=== PATIENT | male | born 1950 | race Caucasian/White ===

== ENCOUNTER 2017-06-27 10:24 | Observation (INO) | payer OTHER, MEDICAID ==
[~2017-06-27] VITALS: Ht 185.4 cm; Wt 126.1 kg
[2017-06-27] MEDS ORDERED: IOHEXOL 350 MG/ML 100ML IJ ONE ×2 (16:01→17:08)
[2017-06-27 16:36] LABS: Basophils # (auto) 0.1 uL; Basophils % (auto) 0.6 % (0.0-2.0); Eosinophils # (auto) 0.1 uL; Eosinophils % (auto) 1.5 % (0.0-7.0); Hematocrit 48.3 % (41.0-53.0); Hemoglobin 16.5 g/dL (13.5-17.5); Lymphocytes # (auto) 1.8 uL; Lymphocytes % (auto) 18.5 % (10.0-50.0); Mean Corpuscular Hemoglobin 32.1 pg (28.0-32.0); Mean Corpuscular Hgb Conc. 34.1 g/dL (32.0-36.0); Mean Corpuscular Volume 94.1 fL (80.0-100.0); Mean Platelet Volume 8.9 fL (6.9-10.8); Monocytes # (auto) 0.7 uL; Monocytes % (auto) 7.3 % (0.0-12.0); Neutrophils % (auto) 72.1 % (37.0-80.0); Nucleated Red Blood Cells % 0.1 %; Platelet Count (auto) 247 10^3/uL (140-450); Red Cell Distribution Width 13.9 % (11.8-14.3); White Blood Cell 9.7 10^3/uL (4.4-10.8)
[2017-06-27 16:44] LABS: INR 0.92 (0.9-1.15); Partial Thromboplastin Time 27.3 sec (22.64-33.71)
[2017-06-27 16:51] LABS: Albumin 4.1 g/dL (3.4-5.0); BUN/Creatinine Ratio 12.8; Calcium 9.2 mg/dL (8.5-10.1); Potassium 4.1 mmol/L (3.5-5.1)
[2017-06-27 16:54] LABS: Bilirubin, Total 0.7 mg/dL (0.2-1.0); Total Protein 8.3 g/dL (6.4-8.2)
[2017-06-27 20:11] VITALS: BP 150/78
== END 2017-06-27 20:19 | disposition home or self-care (01) | DRG 556 ==
LOC: ER 10:24 → OVERFLOW 15:55 → ER 20:19
PROVIDERS: ADMIT Family Medicine; ATTEND Family Medicine
DX: M79.89 Other specified soft tissue disorders (principal); E11.9 Type 2 diabetes mellitus without complications; E78.5 Hyperlipidemia, unspecified; I10 Essential (primary) hypertension; Z82.49 Family history of ischemic heart disease and other diseases of the circulatory system; R60.9 Edema, unspecified; I83.90 Asymptomatic varicose veins of unspecified lower extremity; N40.0 Benign prostatic hyperplasia without lower urinary tract symptoms; K57.30 Diverticulosis of large intestine without perforation or abscess without bleeding; M70.21 Olecranon bursitis, right elbow; Z86.718 Personal history of other venous thrombosis and embolism
CPT/HCPCS: 36415; 71010; 73080; 73706; 80053; 83735; 85025; 85610; 85730; 93971; 99285; G0378; Q9967

== ENCOUNTER 2017-08-02 15:13 | Emergency (ER) | payer OTHER, MEDICAID ==
[~2017-08-02] VITALS: Ht 185.4 cm; Wt 127.0 kg
[2017-08-02 16:20] LABS: Basophils # (auto) 0.2 uL; Basophils % (auto) 2.1 % (0.0-2.0); Eosinophils # (auto) 0.3 uL; Eosinophils % (auto) 3.1 % (0.0-7.0); Hematocrit 45.7 % (41.0-53.0); Hemoglobin 15.6 g/dL (13.5-17.5); Lymphocytes % (auto) 21.3 % (10.0-50.0); Mean Corpuscular Hgb Conc. 34.2 g/dL (32.0-36.0); Mean Corpuscular Volume 93.3 fL (80.0-100.0); Mean Platelet Volume 8.9 fL (6.9-10.8); Monocytes # (auto) 0.9 uL; Monocytes % (auto) 9.1 % (0.0-12.0); Neutrophils # (auto) 6.1 uL; Neutrophils % (auto) 64.4 % (37.0-80.0); Nucleated Red Blood Cells % 0.1 %; Platelet Count (auto) 247 10^3/uL (140-450); White Blood Cell 9.5 10^3/uL (4.4-10.8)
[2017-08-02 16:37] LABS: Albumin 3.6 g/dL (3.4-5.0); BUN/Creatinine Ratio 11.2; Bilirubin, Total 0.5 mg/dL (0.2-1.0); Potassium 4.4 mmol/L (3.5-5.1); Total Protein 7.9 g/dL (6.4-8.2)
[2017-08-02 17:21] VITALS: BP 131/87
== END 2017-08-02 17:44 | disposition home or self-care (01) ==
LOC: ER 15:18
DX: I82.501 Chronic embolism and thrombosis of unspecified deep veins of right lower extremity (principal); M79.604 Pain in right leg; E11.9 Type 2 diabetes mellitus without complications; E78.5 Hyperlipidemia, unspecified; I10 Essential (primary) hypertension; Z79.01 Long term (current) use of anticoagulants; Z88.0 Allergy status to penicillin
CPT/HCPCS: 36415; 80053; 85025; 93971

== ENCOUNTER 2017-10-06 09:48 | Emergency (ER) | payer OTHER, MEDICAID ==
[~2017-10-06] VITALS: Ht 182.9 cm; Wt 126.6 kg
[2017-10-06 10:49] VITALS: BP 164/100
== END 2017-10-06 13:20 | disposition home or self-care (01) ==
LOC: ER 09:48
DX: S76.311A Strain of muscle, fascia and tendon of the posterior muscle group at thigh level, right thigh, initial encounter (principal); I10 Essential (primary) hypertension; E11.9 Type 2 diabetes mellitus without complications; E78.00 Pure hypercholesterolemia, unspecified; Z88.0 Allergy status to penicillin; X58.XXXA Exposure to other specified factors, initial encounter; Y93.89 Activity, other specified; Y99.8 Other external cause status; Y92.89 Other specified places as the place of occurrence of the external cause
CPT/HCPCS: 93971

== ENCOUNTER 2017-10-22 10:12 | Emergency (ER) | payer OTHER, MEDICAID ==
[~2017-10-22] VITALS: Ht 185.4 cm; Wt 127.9 kg
[2017-10-22 12:18] VITALS: BP 152/75
[2017-10-22] MEDS ORDERED: SODIUM CHLORIDE 0.9% 1,000 ML IV ONE (13:54)
[2017-10-22 14:20] LABS: Basophils # (auto) 0.1 uL; Basophils % (auto) 0.9 % (0.0-2.0); Eosinophils # (auto) 0.1 uL; Eosinophils % (auto) 0.8 % (0.0-7.0); Hematocrit 45.1 % (41.0-53.0); Lymphocytes # (auto) 2.3 uL; Lymphocytes % (auto) 19.8 % (10.0-50.0); Mean Corpuscular Hemoglobin 30.3 pg (28.0-32.0); Mean Corpuscular Hgb Conc. 33.3 g/dL (32.0-36.0); Monocytes # (auto) 0.6 uL; Monocytes % (auto) 5.6 % (0.0-12.0); Neutrophils # (auto) 8.3 uL; Neutrophils % (auto) 72.9 % (37.0-80.0); Nucleated Red Blood Cells % 0.1 %; Platelet Count (auto) 301 10^3/uL (140-450); Red Blood Cells 4.96 10^6/uL (4.5-5.90); Red Cell Distribution Width 14.3 % (11.8-14.3); White Blood Cell 11.4 10^3/uL (4.4-10.8)
[2017-10-22 14:40] LABS: Albumin 3.6 g/dL (3.4-5.0); BUN/Creatinine Ratio 11.1; Bilirubin, Total 0.5 mg/dL (0.2-1.0); Calcium 8.8 mg/dL (8.5-10.1); Potassium 4.3 mmol/L (3.5-5.1); Total Protein 8.3 g/dL (6.4-8.2)
[2017-10-22 14:49] LABS: INR 0.96 (0.9-1.15); Partial Thromboplastin Time 27.8 sec (22.64-33.71); Prothrombin Time 10.5 sec (9.37-12.3)
[2017-10-22] MEDS ORDERED: cefTRIAXone 1GM/10ml IVPUSH 10 ML IV ONE (15:30)
[2017-10-22] MEDS ORDERED: KETOROLAC TROMETH 30 MG/ML 1ML VIAL IV ONE (15:30)
[2017-10-22] MEDS ORDERED: cefTRIAXone SOD 1,000 MG VL ONE (15:40)
== END 2017-10-22 16:00 | disposition home or self-care (01) ==
LOC: ER 10:12
DX: S82.51XA Displaced fracture of medial malleolus of right tibia, initial encounter for closed fracture (principal); E11.9 Type 2 diabetes mellitus without complications; E78.5 Hyperlipidemia, unspecified; I10 Essential (primary) hypertension; Z88.0 Allergy status to penicillin; W10.8XXA Fall (on) (from) other stairs and steps, initial encounter; Y93.89 Activity, other specified; Y92.89 Other specified places as the place of occurrence of the external cause; Y99.8 Other external cause status
CPT/HCPCS: 36415; 71045; 73610; 73700; 80053; 82962; 85025; 85610; 85730; 96361; 96374; 96375; 99285; J0696; J1885; J7030

== ENCOUNTER 2018-01-12 16:39 | Emergency (ER) | payer OTHER, MEDICAID ==
[~2018-01-12] VITALS: Ht 185.4 cm; Wt 127.9 kg
[2018-01-12 19:52] VITALS: BP 150/81
== END 2018-01-12 20:35 | disposition home or self-care (01) ==
LOC: ER 16:43
DX: L03.115 Cellulitis of right lower limb (principal); E11.610 Type 2 diabetes mellitus with diabetic neuropathic arthropathy; E78.5 Hyperlipidemia, unspecified; I10 Essential (primary) hypertension; Z88.0 Allergy status to penicillin
CPT/HCPCS: 73620; 93971

== ENCOUNTER 2018-03-14 14:04 | Emergency (ER) | payer OTHER, MEDICAID ==
[~2018-03-14] VITALS: Ht 185.4 cm; Wt 125.6 kg
[2018-03-14 14:58] LABS: Basophils # (auto) 0 uL; Basophils % (auto) 0.2 % (0.0-2.0); Eosinophils # (auto) 0.1 uL; Eosinophils % (auto) 1.4 % (0.0-7.0); Hematocrit 46.2 % (41.0-53.0); Hemoglobin 15.6 g/dL (13.5-17.5); Lymphocytes # (auto) 2.1 uL; Lymphocytes % (auto) 19.6 % (10.0-50.0); Mean Corpuscular Hemoglobin 31.5 pg (28.0-32.0); Mean Corpuscular Hgb Conc. 33.8 g/dL (32.0-36.0); Mean Corpuscular Volume 93.3 fL (80.0-100.0); Monocytes # (auto) 1.1 uL; Monocytes % (auto) 10.3 % (0.0-12.0); Neutrophils # (auto) 7.3 uL; Neutrophils % (auto) 68.5 % (37.0-80.0); Nucleated Red Blood Cells % 1.3 %; Platelet Count (auto) 277 10^3/uL (140-450); Red Blood Cells 4.95 10^6/uL (4.5-5.90); Red Cell Distribution Width 14.2 % (11.8-14.3); White Blood Cell 10.7 10^3/uL (4.4-10.8)
[2018-03-14 15:21] LABS: Albumin 3.5 g/dL (3.4-5.0); BUN/Creatinine Ratio 14.2; Bilirubin, Total 0.4 mg/dL (0.2-1.0); Calcium 8.7 mg/dL (8.5-10.1); Potassium 4.3 mmol/L (3.5-5.1); Total Protein 7.7 g/dL (6.4-8.2)
[2018-03-14 16:02] VITALS: BP 160/85
== END 2018-03-14 16:37 | disposition home or self-care (01) ==
LOC: ER 14:04
DX: E11.610 Type 2 diabetes mellitus with diabetic neuropathic arthropathy (principal); E11.621 Type 2 diabetes mellitus with foot ulcer; L97.419 Non-pressure chronic ulcer of right heel and midfoot with unspecified severity; Z88.0 Allergy status to penicillin
CPT/HCPCS: 36415; 73610; 80053; 85025; 93971

== ENCOUNTER 2018-06-09 08:58 | Emergency (ER) | payer OTHER, MEDICAID ==
[~2018-06-09] VITALS: Ht 185.4 cm; Wt 119.3 kg
[2018-06-09 10:16] LABS: Basophils # (auto) 0.2 uL; Basophils % (auto) 1.1 % (0.0-2.0); Eosinophils # (auto) 0 uL; Hematocrit 39.5 % (41.0-53.0); Hemoglobin 13.1 g/dL (13.5-17.5); Lymphocytes # (auto) 0.7 uL; Lymphocytes % (auto) 4.3 % (10.0-50.0); Mean Corpuscular Hemoglobin 29.7 pg (28.0-32.0); Mean Corpuscular Hgb Conc. 33.1 g/dL (32.0-36.0); Mean Corpuscular Volume 89.7 fL (80.0-100.0); Monocytes # (auto) 1.7 uL; Monocytes % (auto) 11.1 % (0.0-12.0); Neutrophils % (auto) 83.5 % (37.0-80.0); Platelet Count (auto) 283 10^3/uL (140-450); Red Cell Distribution Width 14.7 % (11.8-14.3); White Blood Cell 15.5 10^3/uL (4.4-10.8)
[2018-06-09 10:41] LABS: BUN/Creatinine Ratio 8.6; Bilirubin, Total 1.1 mg/dL (0.2-1.0); Calcium 8.5 mg/dL (8.5-10.1); Potassium 4.4 mmol/L (3.5-5.1); Total Protein 7.6 g/dL (6.4-8.2)
[2018-06-09] MEDS ORDERED: SODIUM CHLORIDE 0.9% 1,000 ML IV ONE (10:56)
[2018-06-09] MEDS ORDERED: KETOROLAC TROMETH 30 MG/ML 1ML VIAL IV ONE (11:00)
[2018-06-09] MEDS ORDERED: METOCLOPRAMIDE HCL 5MG/ml INJ 2ml VIAL IV ONE (11:00)
[2018-06-09] MEDS ORDERED: KETOROLAC TROMETH 60MG/2ML VIAL IM ONE (11:15)
[2018-06-09 12:57] VITALS: BP 114/51
[2018-06-09] MEDS ORDERED: VANCOMYCIN 1GM/250ML 250 ML IV ONE (13:15)
[2018-06-09] MEDS ORDERED: cefTRIAXone W LIDOCAINE 1 GM IM IM ONE (13:45)
== END 2018-06-09 14:14 | disposition left against medical advice (07) ==
LOC: ER 08:58
DX: E11.621 Type 2 diabetes mellitus with foot ulcer (principal); A52.16 Charcot's arthropathy (tabetic); L03.115 Cellulitis of right lower limb; E46 Unspecified protein-calorie malnutrition; E78.5 Hyperlipidemia, unspecified; I10 Essential (primary) hypertension; Z68.34 Body mass index [BMI] 34.0-34.9, adult; Z88.0 Allergy status to penicillin; Z53.29 Procedure and treatment not carried out because of patient's decision for other reasons
CPT/HCPCS: 36415; 73700; 80053; 83735; 85025; 96372; 99285; J1885; J0696

== ENCOUNTER 2018-06-17 16:19 | Inpatient (IN) | payer OTHER, MEDICAID ==
[~2018-06-17] VITALS: Ht 185.4 cm; Wt 123.1 kg
[2018-06-17] MEDS ORDERED: SODIUM CHLORIDE 0.9% 1,000 ML IV ONE (16:32)
[2018-06-17] MEDS ORDERED: MORPHINE SULFATE 4 MG/ML SYR/VIAL IV ONE ×2 (16:45→20:15)
[2018-06-17] MEDS ORDERED: ONDANSETRON HCL 4 MG/2 ML VIAL IV ONE ×2 (16:45→20:15)
[2018-06-17 17:14] LABS: Hematocrit 38.7 % (41.0-53.0); Hemoglobin 12.7 g/dL (13.5-17.5); Mean Corpuscular Hemoglobin 29.3 pg (28.0-32.0); Mean Corpuscular Hgb Conc. 32.9 g/dL (32.0-36.0); Mean Corpuscular Volume 89.2 fL (80.0-100.0); Platelet Count (auto) 501 10^3/uL (140-450); Red Blood Cells 4.34 10^6/uL (4.5-5.90); Red Cell Distribution Width 15.6 % (11.8-14.3); White Blood Cell 19.2 10^3/uL (4.4-10.8)
[2018-06-17 17:29] LABS: INR 1.07 (0.9-1.15); Partial Thromboplastin Time 26.4 sec (23.78-33.04); Prothrombin Time 11.4 sec (9.27-12.13)
[2018-06-17 17:31] LABS: Alanine Aminotransferase 31 U/L (16-61); Albumin 1.9 g/dL (3.4-5.0); Anion Gap 9 (5-15); Aspartate Aminotransferase 20 U/L (15-37); BUN/Creatinine Ratio 17.5; Blood Urea Nitrogen 21 mg/dL (7-18); Carbon Dioxide 24 mmol/L (21-32); Chloride 100 mmol/L (98-107); GFR African American 78 mL/min; GFR Non-African American 64 mL/min; Glucose 213 mg/dL (74-106); Magnesium 2.2 mg/dL (1.6-2.6); Potassium 3.8 mmol/L (3.5-5.1); Sodium 133 mmol/L (136-145)
[2018-06-17 17:35] LABS: Alkaline Phosphatase 340 U/L (45-117); Bilirubin, Total 0.5 mg/dL (0.2-1.0); Total Protein 7.2 g/dL (6.4-8.2)
[2018-06-17 17:43] LABS: Band Neutrophils % (manual) 0; Basophils % (manual) 0 (0.0-2.0); Blast Cells 0; Eosinophils % (manual) 0 (0-7); Metamyelocytes % 0; Myelocytes % 0; Promyelocytes % 0; Reactive Lymphocytes 0
[2018-06-17 19:28] LABS: Lymphocytes % (manual) 4 (10.0-50.0); Monocytes % (manual) 3 (0-12)
[2018-06-17] MEDS ORDERED: ACETAMINOPHEN 500 MG TAB PO PRN (22:45)
[2018-06-17] MEDS ORDERED: ONDANSETRON HCL 4 MG/2 ML VIAL IV PRN (22:45)
[2018-06-17] MEDS ORDERED: HYDROcodone-ACET 5/325MG TAB PO PRN (22:45)
[2018-06-17] MEDS ORDERED: DEXTROSE (50%) 50ML SYRG IV PRN (22:45)
[2018-06-17 23:40] VITALS: BP 122/66
[2018-06-18] VITALS: BP 122/66
[2018-06-18 05:00] VITALS: BP 119/69
[2018-06-18] MEDS: MORPHINE SULFATE 4 MG/ML SYR/VIAL IV PRN ×3 (05:48→18:20)
[2018-06-18] MEDS ORDERED: CLINDAMYCIN 600MG IV 50 ML IV SCH (06:00)
[2018-06-18] MEDS: InsuLIN REG 1unit/0.01ml Soln (100units/ml) SC SCH ×4 (06:28→22:00)
[2018-06-18] MEDS: ACCU-CHEK COMFORT CURVE STRIP VI SCH ×4 (06:28→22:00)
[2018-06-18] MEDS: cefTRIAXone 1GM/10ml IVPUSH 10 ML IV SCH (06:52)
[2018-06-18 07:26] LABS: Eosinophils # (auto) 0 uL; Eosinophils % (auto) 0.1 % (0.0-7.0)
[2018-06-18 07:29] LABS: Basophils # (auto) 0.1 uL; Basophils % (auto) 0.3 % (0.0-2.0); Hematocrit 40.4 % (41.0-53.0); Hemoglobin 12.2 g/dL (13.5-17.5); Lymphocytes # (auto) 1.4 uL; Lymphocytes % (auto) 5.5 % (10.0-50.0); Mean Corpuscular Hemoglobin 28.8 pg (28.0-32.0); Mean Corpuscular Hgb Conc. 30.3 g/dL (32.0-36.0); Monocytes # (auto) 1.5 uL; Monocytes % (auto) 5.9 % (0.0-12.0); Neutrophils # (auto) 21.8 uL; Neutrophils % (auto) 88.2 % (37.0-80.0); Platelet Count (auto) 498 10^3/uL (140-450); Red Blood Cells 4.25 10^6/uL (4.5-5.90); Red Cell Distribution Width 16.6 % (11.8-14.3); White Blood Cell 24.8 10^3/uL (4.4-10.8)
[2018-06-18 07:41] LABS: BUN/Creatinine Ratio 16.4; Potassium 4.5 mmol/L (3.5-5.1)
[2018-06-18 09:00] VITALS: BP 121/68
[2018-06-18 09:06] LABS: Urine Bacteria NONE SEEN /hpf (None Seen); Urine Blood Negative /uL (Negative); Urine Specific Gravity 1.022 (1.001-1.035); Urine WBC 3 /hpf (0 - 3)
[2018-06-18] MEDS: APIXABAN 2.5 MG TAB PO SCH ×2 (10:43→22:07)
[2018-06-18] MEDS: GABAPENTIN 300 MG CAP PO SCH (10:43)
[2018-06-18 11:57] VITALS: BP 119/60
[2018-06-18] MEDS ORDERED: VANCOMYCIN PER PHARMACY 0 MG IV SCH (12:30)
[2018-06-18 13:15] LABS: Cholesterol 112 mg/dL (< 200); HDL Cholesterol 19 mg/dL (40-59); LDL Cholesterol 81 mg/dL (< 100); Triglycerides 131 mg/dL (< 150)
[2018-06-18] MEDS: VANCOMYCIN 1GM/250ML 250 ML IV SCH ×2 (13:19→22:07)
[2018-06-18] MEDS: CARISOPRODOL 350 MG TAB PO SCH ×2 (13:20→22:08)
[2018-06-18 16:12] VITALS: BP 129/72
[2018-06-18 21:55] VITALS: BP 131/73
[2018-06-18] MEDS: ATORVASTATIN 20 MG TAB PO SCH (22:08)
[2018-06-19 05:53] VITALS: BP 145/59
[2018-06-19] MEDS: CARISOPRODOL 350 MG TAB PO SCH ×3 (06:00→22:00)
[2018-06-19] MEDS: VANCOMYCIN 1GM/250ML 250 ML IV SCH ×3 (06:03→22:09)
[2018-06-19] MEDS: cefTRIAXone 1GM/10ml IVPUSH 10 ML IV SCH (06:16)
[2018-06-19] MEDS: ACCU-CHEK COMFORT CURVE STRIP VI SCH ×4 (06:16→22:10)
[2018-06-19] MEDS: InsuLIN REG 1unit/0.01ml Soln (100units/ml) SC SCH ×4 (06:16→22:00)
[2018-06-19 06:46] LABS: Hematocrit 35.9 % (41.0-53.0); Mean Corpuscular Volume 89.4 fL (80.0-100.0); Red Cell Distribution Width 15.7 % (11.8-14.3)
[2018-06-19 06:48] LABS: Hemoglobin 11.7 g/dL (13.5-17.5); Mean Corpuscular Hemoglobin 29.1 pg (28.0-32.0); Mean Corpuscular Hgb Conc. 32.6 g/dL (32.0-36.0); Platelet Count (auto) 539 10^3/uL (140-450); Red Blood Cells 4.02 10^6/uL (4.5-5.90); White Blood Cell 19.9 10^3/uL (4.4-10.8)
[2018-06-19 07:02] LABS: Potassium 4.5 mmol/L (3.5-5.1)
[2018-06-19 07:06] LABS: BUN/Creatinine Ratio 17.2; Calcium 8.2 mg/dL (8.5-10.1)
[2018-06-19 07:56] LABS: Band Neutrophils % (manual) 0; Basophils % (manual) 0 (0.0-2.0); Blast Cells 0; Eosinophils % (manual) 0 (0-7); Metamyelocytes % 0; Myelocytes % 0; Promyelocytes % 0; Reactive Lymphocytes 0
[2018-06-19 07:58] LABS: Lymphocytes % (manual) 1 (10.0-50.0); Monocytes % (manual) 7 (0-12)
[2018-06-19 09:00] VITALS: BP 144/78
[2018-06-19] MEDS: GABAPENTIN 300 MG CAP PO SCH (09:54)
[2018-06-19] MEDS: APIXABAN 2.5 MG TAB PO SCH ×2 (09:54→22:10)
[2018-06-19] MEDS ORDERED: DAKINS QUARTER STR 0.125% (NaHypochlorite) 473 ML TOPICAL SOL TOP SCH (10:00)
[2018-06-19 13:00] VITALS: BP 141/71
[2018-06-19] MEDS ORDERED: LACTULOSE 20Gm/30ML SOLN PO PRN (14:15)
[2018-06-19 17:00] VITALS: BP 146/72
[2018-06-19] MEDS ORDERED: LIDOCAINE 1% (LOCAL ANESTH.) PF 5ml SDV ID ONE (17:15)
[2018-06-19 20:24] LABS: CRP High Sensitivity > 19.0 mg/dL (< 0.3)
[2018-06-19 22:00] VITALS: BP 135/74
[2018-06-19] MEDS: ATORVASTATIN 20 MG TAB PO SCH (22:00)
[2018-06-19] MEDS ORDERED: SODIUM CHLOR 0.9% PF (SALINE LOCK) 10ML VIAL/SYR IV SCH (22:00)
[2018-06-19 23:44] LABS: PROCALCITONIN 0.35 ng/mL (0-0.1)
[2018-06-20 05:41] VITALS: BP_SYST 135; BP_SYST 136; BP_DIAS 74; BP_DIAS 89
[2018-06-20] MEDS: VANCOMYCIN 1GM/250ML 250 ML IV SCH (05:41)
[2018-06-20] MEDS: CARISOPRODOL 350 MG TAB PO SCH (05:41)
[2018-06-20] MEDS: InsuLIN REG 1unit/0.01ml Soln (100units/ml) SC SCH (06:44)
[2018-06-20] MEDS: ACCU-CHEK COMFORT CURVE STRIP VI SCH (06:44)
[2018-06-20] MEDS: cefTRIAXone 1GM/10ml IVPUSH 10 ML IV SCH (06:46)
[2018-06-20 09:00] VITALS: BP 134/69
== END 2018-06-20 10:26 | disposition left against medical advice (07) | DRG 871 ==
LOC: EDBD 16:19 → ER 16:25 → CENTRAL 16:26
PROVIDERS: ADMIT Nurse Practitioner Family; ATTEND Family Medicine
PROC: 02HV33Z Insertion of Infusion Device into Superior Vena Cava, Percutaneous Approach (ICD-10-PCS; principal; 2018-06-19)
DX: A40.1 Sepsis due to streptococcus, group B (principal); E43 Unspecified severe protein-calorie malnutrition; L03.115 Cellulitis of right lower limb; E87.1 Hypo-osmolality and hyponatremia; D64.9 Anemia, unspecified; E11.42 Type 2 diabetes mellitus with diabetic polyneuropathy; E11.621 Type 2 diabetes mellitus with foot ulcer; E66.9 Obesity, unspecified; E78.00 Pure hypercholesterolemia, unspecified; G89.29 Other chronic pain; I10 Essential (primary) hypertension; L97.519 Non-pressure chronic ulcer of other part of right foot with unspecified severity; L97.529 Non-pressure chronic ulcer of other part of left foot with unspecified severity; M47.896 Other spondylosis, lumbar region; M77.30 Calcaneal spur, unspecified foot; M85.80 Other specified disorders of bone density and structure, unspecified site; Z79.01 Long term (current) use of anticoagulants; Z82.49 Family history of ischemic heart disease and other diseases of the circulatory system; Z86.718 Personal history of other venous thrombosis and embolism; Z88.0 Allergy status to penicillin; Z68.35 Body mass index [BMI] 35.0-35.9, adult
CPT/HCPCS: 36415; 36569; 71045; 72131; 73620; 73700; 74176; 80048; 80053; 80061; 80202; 81001; 82962; 83036; 83735; 84146; 84484; 85007; 85025; 85027; 85610; 85652; 85730; 86141; 87040; 87077; 87081; 87086; 87186; 87205; 93005; 93925; 93971; 94761; 96361; 96365; 96375; A6257; J0696; J1815; J2405; J3490

== ENCOUNTER 2018-07-28 12:16 | Inpatient (IN) | payer OTHER, MEDICAID ==
[~2018-07-28] VITALS: Ht 185.4 cm; Wt 107.7 kg
[2018-07-28 13:30] LABS: Basophils # (auto) 0.1 uL; Eosinophils # (auto) 0.1 uL; Hemoglobin 11.5 g/dL (13.5-17.5)
[2018-07-28 13:32] LABS: Basophils % (auto) 0.5 % (0.0-2.0); Eosinophils % (auto) 1.1 % (0.0-7.0); Hematocrit 35.3 % (41.0-53.0); Lymphocytes % (auto) 20.6 % (10.0-50.0); Mean Corpuscular Hemoglobin 28.2 pg (28.0-32.0); Mean Corpuscular Hgb Conc. 32.7 g/dL (32.0-36.0); Mean Corpuscular Volume 86.4 fL (80.0-100.0); Monocytes # (auto) 0.6 uL; Monocytes % (auto) 6.6 % (0.0-12.0); Neutrophils # (auto) 6.8 uL; Neutrophils % (auto) 71.2 % (37.0-80.0); Nucleated Red Blood Cells % 0.1 %; Platelet Count (auto) 504 10^3/uL (140-450); Red Blood Cells 4.09 10^6/uL (4.5-5.90); Red Cell Distribution Width 16.8 % (11.8-14.3); White Blood Cell 9.6 10^3/uL (4.4-10.8)
[2018-07-28 13:44] LABS: INR 0.94 (0.9-1.15); Prothrombin Time 10.1 sec (9.27-12.13)
[2018-07-28] MEDS ORDERED: CLINDAMYCIN 600MG IV 50 ML IV ONE (13:45)
[2018-07-28 13:52] LABS: Albumin 2.8 g/dL (3.4-5.0); BUN/Creatinine Ratio 8.9; Calcium 9.1 mg/dL (8.5-10.1); Potassium 3.9 mmol/L (3.5-5.1)
[2018-07-28 13:55] LABS: Bilirubin, Total 0.4 mg/dL (0.2-1.0); Total Protein 8.9 g/dL (6.4-8.2)
[2018-07-28] MEDS ORDERED: cefTRIAXone 1GM/50ML D5W 50 ML IV ONE (16:00)
[2018-07-28] MEDS ORDERED: MORPHINE SULFATE 4 MG/ML SYR/VIAL IV PRN ×2 (16:15)
[2018-07-28] MEDS ORDERED: DEXTROSE (50%) 50ML SYRG IV PRN (16:15)
[2018-07-28] MEDS ORDERED: traMADol HCL 50 MG TAB PO PRN (16:15)
[2018-07-28] MEDS ORDERED: TEMAZEPAM 15 MG CAP PO PRN (16:15)
[2018-07-28] MEDS ORDERED: DOCUSATE SOD 100 MG CAP PO PRN (16:15)
[2018-07-28] MEDS ORDERED: NITROGLYCERIN 0.4 MG SL TAB SL PRN (16:15)
[2018-07-28] MEDS ORDERED: ACETAMINOPHEN 325 MG TAB PO PRN (16:15)
[2018-07-28] MEDS ORDERED: ONDANSETRON HCL 4 MG/2 ML VIAL IV PRN (16:15)
[2018-07-28] MEDS: InsuLIN REG 1unit/0.01ml Soln (100units/ml) SC SCH ×2 (17:00→22:00)
[2018-07-28 18:07] LABS: Urine Bacteria NONE SEEN /hpf (None Seen); Urine Blood Negative /uL (Negative); Urine Mucus FEW (None Seen); Urine Specific Gravity 1.017 (1.001-1.035); Urine WBC <1 /hpf (0 - 3)
[2018-07-28] MEDS: CLINDAMYCIN 300MG IV 50 ML IV SCH (18:09)
[2018-07-28] MEDS: ACCU-CHEK COMFORT CURVE STRIP VI SCH ×2 (18:16→22:58)
[2018-07-28] MEDS: Glucerna Carbsteady SHAKE Vanilla 8oz PO SCH (18:16)
[2018-07-28 18:33] VITALS: BP 135/69
[2018-07-28] MEDS: SODIUM CHLOR 0.9% PF (SALINE LOCK) 10ML VIAL/SYR IV SCH (21:36)
[2018-07-28] MEDS: FAMOTIDINE 20 MG TAB PO SCH (21:36)
[2018-07-28] MEDS: ASCORBIC ACID 500 MG TAB PO SCH (21:36)
[2018-07-28 21:37] VITALS: BP 134/72
[2018-07-28] MEDS: APIXABAN 2.5 MG TAB PO SCH (21:37)
[2018-07-29] MEDS: CLINDAMYCIN 300MG IV 50 ML IV SCH ×3 (00:56→16:54)
[2018-07-29 04:58] VITALS: BP 133/68
[2018-07-29 05:24] LABS: Basophils # (auto) 0 uL; Hematocrit 34.7 % (41.0-53.0); Lymphocytes # (auto) 2.1 uL; Monocytes # (auto) 0.7 uL; Neutrophils # (auto) 4.3 uL; Nucleated Red Blood Cells % 0.1 %; Red Cell Distribution Width 16.4 % (11.8-14.3)
[2018-07-29 05:26] LABS: Basophils % (auto) 0.4 % (0.0-2.0); Eosinophils # (auto) 0.2 uL; Eosinophils % (auto) 2.5 % (0.0-7.0); Hemoglobin 11.4 g/dL (13.5-17.5); Lymphocytes % (auto) 28.5 % (10.0-50.0); Mean Corpuscular Hemoglobin 28.4 pg (28.0-32.0); Mean Corpuscular Hgb Conc. 32.9 g/dL (32.0-36.0); Mean Corpuscular Volume 86.2 fL (80.0-100.0); Monocytes % (auto) 9.3 % (0.0-12.0); Neutrophils % (auto) 59.3 % (37.0-80.0); Platelet Count (auto) 462 10^3/uL (140-450); Red Blood Cells 4.02 10^6/uL (4.5-5.90); White Blood Cell 7.2 10^3/uL (4.4-10.8)
[2018-07-29 05:42] LABS: Potassium 4.3 mmol/L (3.5-5.1)
[2018-07-29 05:45] LABS: Albumin 2.6 g/dL (3.4-5.0); BUN/Creatinine Ratio 10.1
[2018-07-29 05:58] LABS: Bilirubin, Total 0.4 mg/dL (0.2-1.0)
[2018-07-29] MEDS: InsuLIN REG 1unit/0.01ml Soln (100units/ml) SC SCH ×4 (06:15→20:41)
[2018-07-29] MEDS: SODIUM CHLOR 0.9% PF (SALINE LOCK) 10ML VIAL/SYR IV SCH ×3 (06:15→20:38)
[2018-07-29] MEDS: ACCU-CHEK COMFORT CURVE STRIP VI SCH ×4 (06:16→20:39)
[2018-07-29 07:38] VITALS: BP 127/63
[2018-07-29] MEDS: Glucerna Carbsteady SHAKE Vanilla 8oz PO SCH ×3 (08:00→18:00)
[2018-07-29] MEDS: ASCORBIC ACID 500 MG TAB PO SCH ×2 (09:58→20:39)
[2018-07-29] MEDS: MULTIPLE VITAMIN TAB PO SCH (09:58)
[2018-07-29] MEDS: ZINC SULFATE 220mg CAP or TAB PO SCH (09:58)
[2018-07-29] MEDS: APIXABAN 2.5 MG TAB PO SCH ×2 (09:58→20:38)
[2018-07-29] MEDS: cefTRIAXone 1GM/50ML D5W 50 ML IV SCH (10:23)
[2018-07-29] MEDS: FAMOTIDINE 20 MG TAB PO SCH ×2 (10:23→20:39)
[2018-07-29 11:39] VITALS: BP 124/66
[2018-07-29 16:59] VITALS: BP 113/64
[2018-07-29] MEDS: HYDROcodone-ACET 5/325MG TAB PO PRN (20:40)
[2018-07-29 22:00] VITALS: BP 122/76
[2018-07-30] MEDS: CLINDAMYCIN 300MG IV 50 ML IV SCH ×3 (00:18→17:09)
[2018-07-30 05:44] VITALS: BP 126/68
[2018-07-30] MEDS: ACCU-CHEK COMFORT CURVE STRIP VI SCH ×4 (05:54→21:02)
[2018-07-30] MEDS: InsuLIN REG 1unit/0.01ml Soln (100units/ml) SC SCH ×4 (05:54→21:03)
[2018-07-30] MEDS: SODIUM CHLOR 0.9% PF (SALINE LOCK) 10ML VIAL/SYR IV SCH ×4 (05:54→21:01)
[2018-07-30] MEDS: cefTRIAXone 1GM/50ML D5W 50 ML IV SCH (08:40)
[2018-07-30 09:27] VITALS: BP 122/63
[2018-07-30] MEDS: ASCORBIC ACID 500 MG TAB PO SCH ×2 (09:43→21:02)
[2018-07-30] MEDS: ZINC SULFATE 220mg CAP or TAB PO SCH (09:43)
[2018-07-30] MEDS: FAMOTIDINE 20 MG TAB PO SCH ×2 (09:43→21:02)
[2018-07-30] MEDS: MULTIPLE VITAMIN TAB PO SCH (09:43)
[2018-07-30] MEDS: APIXABAN 2.5 MG TAB PO SCH ×2 (09:44→21:01)
[2018-07-30] MEDS: Glucerna Carbsteady SHAKE Vanilla 8oz PO SCH ×3 (09:52→18:00)
[2018-07-30 11:26] VITALS: BP 107/65
[2018-07-30] MEDS ORDERED: LIDOCAINE 1% (LOCAL ANESTH.) PF 5ml SDV ID ONE (15:15)
[2018-07-30 17:11] VITALS: BP 135/68
[2018-07-30] MEDS: HYDROcodone-ACET 5/325MG TAB PO PRN (21:02)
[2018-07-30 22:00] VITALS: BP 129/69
[2018-07-31] MEDS: CLINDAMYCIN 300MG IV 50 ML IV SCH ×2 (01:56→09:17)
[2018-07-31 05:00] VITALS: BP 115/63
[2018-07-31] MEDS: ACCU-CHEK COMFORT CURVE STRIP VI SCH ×4 (05:53→21:48)
[2018-07-31] MEDS: SODIUM CHLOR 0.9% PF (SALINE LOCK) 10ML VIAL/SYR IV SCH ×5 (05:53→21:49)
[2018-07-31] MEDS: InsuLIN REG 1unit/0.01ml Soln (100units/ml) SC SCH ×4 (05:54→21:48)
[2018-07-31] MEDS: HYDROcodone-ACET 5/325MG TAB PO PRN ×2 (05:55→21:59)
[2018-07-31 09:14] VITALS: BP 127/76
[2018-07-31] MEDS: cefTRIAXone 1GM/50ML D5W 50 ML IV SCH (09:15)
[2018-07-31] MEDS: FAMOTIDINE 20 MG TAB PO SCH ×2 (09:17→21:49)
[2018-07-31] MEDS: MULTIPLE VITAMIN TAB PO SCH (09:17)
[2018-07-31] MEDS: ZINC SULFATE 220mg CAP or TAB PO SCH (09:18)
[2018-07-31] MEDS: APIXABAN 2.5 MG TAB PO SCH ×2 (09:18→21:48)
[2018-07-31] MEDS: ASCORBIC ACID 500 MG TAB PO SCH ×2 (09:18→21:49)
[2018-07-31] MEDS: Glucerna Carbsteady SHAKE Vanilla 8oz PO SCH ×3 (09:22→18:06)
[2018-07-31 13:15] VITALS: BP 100/66
[2018-07-31 17:01] VITALS: BP 104/54
[2018-07-31 21:31] VITALS: BP 116/64
[2018-08-01 05:00] VITALS: BP 119/61
[2018-08-01] MEDS: SODIUM CHLOR 0.9% PF (SALINE LOCK) 10ML VIAL/SYR IV SCH ×5 (05:13→22:22)
[2018-08-01] MEDS: InsuLIN REG 1unit/0.01ml Soln (100units/ml) SC SCH ×4 (06:15→22:14)
[2018-08-01] MEDS: ACCU-CHEK COMFORT CURVE STRIP VI SCH ×4 (06:15→22:14)
[2018-08-01] MEDS: Glucerna Carbsteady SHAKE Vanilla 8oz PO SCH ×3 (08:19→18:08)
[2018-08-01 08:25] VITALS: BP 116/58
[2018-08-01] MEDS: cefTRIAXone 1GM/50ML D5W 50 ML IV SCH (09:23)
[2018-08-01] MEDS: ASCORBIC ACID 500 MG TAB PO SCH ×2 (09:23→22:20)
[2018-08-01] MEDS: MULTIPLE VITAMIN TAB PO SCH (09:23)
[2018-08-01] MEDS: FAMOTIDINE 20 MG TAB PO SCH ×2 (09:23→22:20)
[2018-08-01] MEDS: ZINC SULFATE 220mg CAP or TAB PO SCH (09:24)
[2018-08-01] MEDS: APIXABAN 2.5 MG TAB PO SCH ×2 (09:24→22:20)
[2018-08-01 10:38] VITALS: BP 116/58
[2018-08-01 13:00] VITALS: BP 129/68
[2018-08-01] MEDS ORDERED: LINEZOLID 600MG/300ML 300 ML IV ONE (13:45)
[2018-08-01 16:44] VITALS: BP 124/67
[2018-08-01] MEDS: LINEZOLID 600MG/300ML 300 ML IV SCH (22:21)
[2018-08-01 22:34] VITALS: BP 120/67
[2018-08-02] MEDS: SODIUM CHLOR 0.9% PF (SALINE LOCK) 10ML VIAL/SYR IV SCH ×5 (05:14→21:18)
[2018-08-02 05:33] VITALS: BP 115/59
[2018-08-02] MEDS: InsuLIN REG 1unit/0.01ml Soln (100units/ml) SC SCH ×4 (06:10→21:27)
[2018-08-02] MEDS: ACCU-CHEK COMFORT CURVE STRIP VI SCH ×4 (06:10→21:21)
[2018-08-02] MEDS: Glucerna Carbsteady SHAKE Vanilla 8oz PO SCH ×3 (07:56→17:34)
[2018-08-02 09:00] VITALS: BP 127/67
[2018-08-02] MEDS: LINEZOLID 600MG/300ML 300 ML IV SCH ×2 (10:08→21:18)
[2018-08-02] MEDS: FAMOTIDINE 20 MG TAB PO SCH ×2 (10:09→21:19)
[2018-08-02] MEDS: ZINC SULFATE 220mg CAP or TAB PO SCH (10:09)
[2018-08-02] MEDS: APIXABAN 2.5 MG TAB PO SCH ×2 (10:09→21:18)
[2018-08-02] MEDS: ASCORBIC ACID 500 MG TAB PO SCH ×2 (10:09→21:19)
[2018-08-02] MEDS: MULTIPLE VITAMIN TAB PO SCH (10:09)
[2018-08-02 13:00] VITALS: BP 121/69
[2018-08-02 16:45] VITALS: BP 130/70
[2018-08-02] MEDS: HYDROcodone-ACET 5/325MG TAB PO PRN ×2 (17:06→21:20)
[2018-08-02 22:23] VITALS: BP 119/60
[2018-08-03 05:56] VITALS: BP 123/60
[2018-08-03] MEDS: SODIUM CHLOR 0.9% PF (SALINE LOCK) 10ML VIAL/SYR IV SCH ×5 (06:15→21:44)
[2018-08-03] MEDS: ACCU-CHEK COMFORT CURVE STRIP VI SCH ×4 (06:15→21:43)
[2018-08-03] MEDS: InsuLIN REG 1unit/0.01ml Soln (100units/ml) SC SCH ×4 (06:16→21:43)
[2018-08-03 08:00] VITALS: BP 131/71
[2018-08-03] MEDS: Glucerna Carbsteady SHAKE Vanilla 8oz PO SCH ×3 (08:00→17:47)
[2018-08-03] MEDS: HYDROcodone-ACET 5/325MG TAB PO PRN ×2 (09:52→21:42)
[2018-08-03] MEDS: APIXABAN 2.5 MG TAB PO SCH ×2 (09:52→21:42)
[2018-08-03] MEDS: FAMOTIDINE 20 MG TAB PO SCH ×2 (09:52→21:42)
[2018-08-03] MEDS: MULTIPLE VITAMIN TAB PO SCH (09:52)
[2018-08-03] MEDS: LINEZOLID 600MG/300ML 300 ML IV SCH ×2 (09:52→21:42)
[2018-08-03] MEDS: ZINC SULFATE 220mg CAP or TAB PO SCH (09:52)
[2018-08-03] MEDS: ASCORBIC ACID 500 MG TAB PO SCH ×2 (09:52→21:42)
[2018-08-03 13:00] VITALS: BP 121/58
[2018-08-03 17:00] VITALS: BP 118/58
[2018-08-03 22:00] VITALS: BP 138/77
[2018-08-04 05:00] VITALS: BP 118/63
[2018-08-04] MEDS: SODIUM CHLOR 0.9% PF (SALINE LOCK) 10ML VIAL/SYR IV SCH ×5 (06:00→21:48)
[2018-08-04] MEDS: InsuLIN REG 1unit/0.01ml Soln (100units/ml) SC SCH ×4 (06:38→22:00)
[2018-08-04] MEDS: ACCU-CHEK COMFORT CURVE STRIP VI SCH ×4 (06:38→21:50)
[2018-08-04] MEDS: Glucerna Carbsteady SHAKE Vanilla 8oz PO SCH ×3 (08:00→17:43)
[2018-08-04 09:30] VITALS: BP 126/74
[2018-08-04] MEDS: LINEZOLID 600MG/300ML 300 ML IV SCH ×2 (09:43→21:48)
[2018-08-04] MEDS: ASCORBIC ACID 500 MG TAB PO SCH ×2 (09:43→21:49)
[2018-08-04] MEDS: APIXABAN 2.5 MG TAB PO SCH ×2 (09:43→21:49)
[2018-08-04] MEDS: ZINC SULFATE 220mg CAP or TAB PO SCH (09:43)
[2018-08-04] MEDS: MULTIPLE VITAMIN TAB PO SCH (09:43)
[2018-08-04] MEDS: FAMOTIDINE 20 MG TAB PO SCH ×2 (09:44→21:49)
[2018-08-04 13:45] VITALS: BP 127/74
[2018-08-04] MEDS: HYDROcodone-ACET 5/325MG TAB PO PRN (16:33)
[2018-08-04 17:12] VITALS: BP 127/69
[2018-08-04 21:15] VITALS: BP 134/70
[2018-08-05 04:38] VITALS: BP 131/77
[2018-08-05] MEDS: SODIUM CHLOR 0.9% PF (SALINE LOCK) 10ML VIAL/SYR IV SCH ×3 (06:03→16:52)
[2018-08-05] MEDS: ACCU-CHEK COMFORT CURVE STRIP VI SCH ×3 (06:45→16:52)
[2018-08-05] MEDS: InsuLIN REG 1unit/0.01ml Soln (100units/ml) SC SCH ×3 (06:45→16:52)
[2018-08-05 09:00] VITALS: BP 121/64
[2018-08-05] MEDS: APIXABAN 2.5 MG TAB PO SCH (09:52)
[2018-08-05] MEDS: ASCORBIC ACID 500 MG TAB PO SCH (09:52)
[2018-08-05] MEDS: FAMOTIDINE 20 MG TAB PO SCH (09:52)
[2018-08-05] MEDS: ZINC SULFATE 220mg CAP or TAB PO SCH (09:52)
[2018-08-05] MEDS: MULTIPLE VITAMIN TAB PO SCH (09:52)
[2018-08-05] MEDS: LINEZOLID 600MG/300ML 300 ML IV SCH (09:53)
[2018-08-05] MEDS: Glucerna Carbsteady SHAKE Vanilla 8oz PO SCH ×2 (09:53→12:42)
[2018-08-05 13:00] VITALS: BP 135/70
== END 2018-08-05 16:48 | disposition home health service (06) | DRG 872 ==
LOC: ER 12:16 → OVERFLOW 16:30 → WEST WING 17:44
PROVIDERS: ADMIT Internal Medicine; ATTEND Family Medicine
PROC: 02HV33Z Insertion of Infusion Device into Superior Vena Cava, Percutaneous Approach (ICD-10-PCS; principal; 2018-07-30)
DX: A41.9 Sepsis, unspecified organism (principal); L03.115 Cellulitis of right lower limb; E44.0 Moderate protein-calorie malnutrition; E87.1 Hypo-osmolality and hyponatremia; I82.501 Chronic embolism and thrombosis of unspecified deep veins of right lower extremity; M86.8X7 Other osteomyelitis, ankle and foot; I12.9 Hypertensive chronic kidney disease with stage 1 through stage 4 chronic kidney disease, or unspecified chronic kidney disease; E11.65 Type 2 diabetes mellitus with hyperglycemia; E78.5 Hyperlipidemia, unspecified; E11.621 Type 2 diabetes mellitus with foot ulcer; D63.8 Anemia in other chronic diseases classified elsewhere; B95.61 Methicillin susceptible Staphylococcus aureus infection as the cause of diseases classified elsewhere; B95.2 Enterococcus as the cause of diseases classified elsewhere; E11.69 Type 2 diabetes mellitus with other specified complication; N18.2 Chronic kidney disease, stage 2 (mild); L97.529 Non-pressure chronic ulcer of other part of left foot with unspecified severity; L97.519 Non-pressure chronic ulcer of other part of right foot with unspecified severity; E11.22 Type 2 diabetes mellitus with diabetic chronic kidney disease; E78.00 Pure hypercholesterolemia, unspecified; G89.29 Other chronic pain; Z82.49 Family history of ischemic heart disease and other diseases of the circulatory system; Z91.19 Patient's noncompliance with other medical treatment and regimen; Z88.0 Allergy status to penicillin; F17.210 Nicotine dependence, cigarettes, uncomplicated; F12.90 Cannabis use, unspecified, uncomplicated; Z68.31 Body mass index [BMI] 31.0-31.9, adult
CPT/HCPCS: 36415; 36569; 71045; 73630; 73700; 80053; 81001; 82962; 83036; 83605; 85025; 85610; 87040; 87077; 87081; 87186; 87205; 93925; 94761; 96365; 96366; 96367; 97110; 97116; 97163; 97530; G0378; J0696; J1815; J3490